=== PATIENT | female | born 1990 | race Two or more races ===

== ENCOUNTER 2018-11-18 10:08 | Inpatient (IN) | payer OTHER ==
--- NOTE | 2018-11-18 10:46 | HP ---
Past Medical History - Admission Chief Complaint: painful contractions History of Present Illness: 28 y/o P2 female with h/o prior section for twins here at 36.6 weeks in active labor. Pt declines TOLAC. complicated by IUGR and she has been followed by MFM. No other issues/complaints. +FM. 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 Weeks Gestation by Dates: 36.6 Additional OB History: IUGR, h/o twin c section Heme/Onc: No: Anemia Psych: No: Anxiety, Bipolar, Depression - Past Surgical History Past Surgical History: Yes: Hx Myomectomy: No Hx Transabdominal Cerclage: No - Smoking History Smoking history: Never smoked Have you smoked in the past 12 months: No Aproximately how many cigarettes per day: 0 - Alcohol/Substance Use Hx Alcohol Use: No - Social History Usual Living Arrangement: Yes: With Spouse ADL: Independent History of Recent Travel: No Home Medications - Allergies Allergies/Adverse Reactions: Allergies Allergy/AdvReac Type Severity Reaction Status Date / Time prednisone Allergy Severe Rash Verified 11/14/18 10:30 - Home Medications Home Medications: Ambulatory Orders Prenat 115/Iron Fum/Folic/Dss [ 19 Tablet] 1 tab PO DAILY 11/11/18 Sertraline HCl [Zoloft] 100 mg PO DAILY 11/11/18 Physical Exam - Maternity Constitutional: Yes: Well Nourished, Mild Distress (having painful contractions) HENT: Yes: Atraumatic, Normocephalic Neck: Yes: Trachea Midline Cardiovascular: Yes: Regular Rate and Rhythm Lungs: Clear to auscultation - Abdominal Exam/OB Number of Fetuses: Single Presentation: Vertex Contractions: Yes Regularity: Regular Intensity: Moderate Heart Rate (range): 145 Accelerations: None Decelerations: Early - Vaginal Exam/OB Vaginal Bleediing: No Dilatation (cm): 1 Effacement (%): 90 Amniotic Membrane Status: Intact Presentation: Vertex/Position Station: -2 - Physical Exam Psychiatric: Yes: Alert, Oriented Hemorrhage Risk Assessment - Risk Factors Medium Risk Factors: Yes: Prior , uterine surgery,or multiple laparotomies High Risk Factors: Yes: None Risk Score: 1 Risk Level: Medium Risk Problem List - Problems (1) labor Code(s): O60.00 - LABOR WITHOUT DELIVERY, UNSPECIFIED TRIMESTER (2) History of delivery Code(s): Z98.891 - HISTORY OF UTERINE SCAR FROM PREVIOUS SURGERY Assessment/Plan 28 y/o with h/o prior c section in labor at 36.6 weeks, declines tolac admit to L&D desires repeat c section, consent signed anesthesia/nursery/neonatology and OR/L&D staff aware NPO Joni
[2018-11-18] MEDS ORDERED: CITRIC ACID/SODIUM CITRATE 30 ML UNIT-DOSE CUP PO ONE (11:00)
[2018-11-18 11:15] LABS: BASO % 0.1 % (0-2.0); HEMATOCRIT 32.7 % (32.4-45.2); HEMOGLOBIN 11.5 GM/dL (10.7-15.3); LYMPH % 5.9 % (8-40); MCH 30.8 pg (25.7-33.7); MCHC 35.3 g/dl (32.0-36.0); MEAN CELL VOLUME 87.3 fl (80-96); MEAN PLT VOLUME 8.1 fl (7.5-11.1); MONO % 3.5 % (3.8-10.2); NEUT % 90.5 % (42.8-82.8); PLATELET COUNT 153 K/MM3 (134-434); RBC 3.74 M/mm3 (3.60-5.2); RDW 12.9 % (11.6-15.6); WHITE BLOOD COUNT 9.9 K/mm3 (4.0-10.0)
[2018-11-18 11:19] VITALS: BMI 21.7
[2018-11-18] MEDS: ELECTROLYTE-148 SOLN 1,000 ML IV SCH (11:21)
[2018-11-18 11:34] LABS: INR 0.97 (0.83-1.09); PROTHROMBIN TIME (PATIENT) 11.4 SEC (9.7-13.0)
[2018-11-18 11:37] LABS: ACTIVATED PTT 27.4 SECONDS (25.2-36.5)
[2018-11-18] MEDS ORDERED: morphine SULFATE/PF 0.5 MG/ML (2cc Syringe - QUVA) ONE (11:46)
[2018-11-18 11:48] LABS: BLOOD UREA NITROGEN 7.5 mg/dL (7-18); CALCIUM 8.3 mg/dL (8.5-10.1); CREATININE 0.4 mg/dL (0.55-1.3); POTASSIUM 3.6 mmol/L (3.5-5.1)
[2018-11-18] MEDS ORDERED: ePHEDrine SULFATE 50 MG/1 ML AMPULE ONE (11:48)
[2018-11-18] MEDS ORDERED: OXYTOCIN 20 UNITS in 0.9% NS 40 UNIT/2,000 ML INFUS.BAG IV ONE (11:51)
[2018-11-18] MEDS ORDERED: GENTAMICIN SO4 80 MG/2 ML VIAL ONE (12:13)
[2018-11-18 12:56] LABS: EPI CELLS 30.1 /HPF (0-5/HPF); HYALINE CASTS 30 /lpf (0-8); URINE APPEARANCE CLOUDY; URINE BACTERIA 60.5 /hpf (NEGATIVE); URINE BILIRUBIN NEGATIVE (NEGATIVE); URINE COLOR DK YELLOW; URINE GLUCOSE (UA) NEGATIVE (NEGATIVE); URINE KETONE TRACE (NEGATIVE); URINE LEUK ESTERASE NEGATIVE (NEGATIVE); URINE NITRITE NEGATIVE (NEGATIVE); URINE PROTEIN 3+ (NEGATIVE); URINE RBC 2 /hpf (0-4); URINE UROBILINOGEN 0.2 mg/dL (0.2-1.0); URINE WBC 4 /hpf (0-5)
[2018-11-18] MEDS ORDERED: METHYLERGONOVINE MALEATE 0.2 MG/1 ML AMP IM PRN (13:00)
[2018-11-18] MEDS ORDERED: SENNOSIDES/DOCUSATE COMBO (SENNA PLUS) TABLET (UD) PO PRN (13:00)
[2018-11-18] MEDS ORDERED: oxyCODONE HCL 5 MG TABLET PO PRN (13:00)
[2018-11-18] MEDS ORDERED: IBUPROFEN 800 MG/8 ML IJ IVPB PRN (13:00)
--- NOTE | 2018-11-18 13:07 | OP ---
Operative Note - Note: Operative Date: 11/18/18 Pre-Operative Diagnosis: previous section, active labor, declined TOLAC, SIUP at 36.6 weeks, IUGR Operation: repeat low transverse delivery Findings: uterine window normal b/l tubes and ovaries Post-Operative Diagnosis: Same as Pre-op Surgeon: Alyce Tripp Print Production Associate: Ryan Ta Anesthesiologist/DEMAND PLANNING MANAGER: Agueda Gongora MD Anesthesia: Spinal Specimens Removed: placenta Estimated Blood Loss (mls): 700 Operative Report Dictated: Yes
[2018-11-18] MEDS ORDERED: ONDANSETRON 4 MG/2 ML VIAL IVPUSH PRN (13:17)
[2018-11-18] MEDS ORDERED: morphine SULFATE/PF 0.5 MG/ML (2cc Syringe - QUVA) EP ONE (13:17)
[2018-11-18] MEDS ORDERED: OXYTOCIN 20 UNITS in 0.9% NS 20 UNIT/1,000 ML INFUS.BAG IV ONE (13:55)
--- NOTE | 2018-11-18 14:24 | OP ---
DATE OF OPERATION: 11/18/2018 PREOPERATIVE DIAGNOSES: 1. Single intrauterine at 36.6 weeks. 2. Active labor. 3. Prior section. 4. Declined trial of labor after . POSTOPERATIVE DIAGNOSES: 1. Single intrauterine at 36.6 weeks. 2. Active labor. 3. Prior section. 4. Declined trial of labor after . PROCEDURE: Repeat low transverse section. SURGEON: Alyce Tripp DO LUNCHROOM ATTENDANT: MCKENZIE Thorpe ANESTHESIA: Spinal ANESTHESIOLOGIST: BENI Byrd FINDINGS: Lower uterine segment window appreciated upon entry into the abdomen. Normal bilateral tubes and ovaries. COUNT: Sponge, needle and instrument count correct. ESTIMATED BLOOD LOSS: 700 mL COMPLICATIONS: None. Apgars 9 and 9. DISPOSITION: Stable to PACU. BRIEF HISTORY AND PROCEDURE: Patient is a 28-year-old female who had a prior section for twin delivery who arrived to Labor & Delivery with the complaints of painful contractions. She was examined and found to be dilated and clive every 2 to 3 minutes in significant pain. The patient has a history of a prior section and declined trial of labor after at this time. Consents for this repeat were signed at this time. Informed consent was obtained. Questions were answered. She was then taken back to the operating room and given spinal anesthesia by Dr. Gongora without incident. She was placed in the dorsal supine position. Quinones catheter was placed under sterile conditions. She was prepped and draped in the usual sterile fashion. A timeout was performed. A Pfannenstiel skin incision was created in the skin with the scalpel using the same incision from her prior delivery. The subcutaneous tissue was incised down to the level of the rectus fascia sharply. The fascia was incised on either side of the midline sharply and the fascial incision was extended in the superior lateral direction sharply. The fascia was tented upwards and dissected off the underlying layer of the rectus muscle sharply. The musculature was identified, from the midline laterally. A bladder blade was inserted. A low transverse incision was created in the uterus using the scalpel and carried in the superior lateral direction bluntly. This was done well above the level of the uterine window, which was appreciated upon entry into the abdominal cavity. The infant was then delivered from the LOP position. Bilateral shoulders and the remainder of the delivered with ease. After a minute of delayed cord clamping, the cord was clamped twice and cut in between. The infant was taken over to the warmer to be assessed by the nursery staff where Apgars of 9 and 9 were assigned. The placenta delivered intact with 3-vessel cord. The uterus was exteriorized from the abdomen, inspected and cleaned off all amniotic membrane and debris with the sponge. The hysterotomy was reapproximated in a double layer closure using 1-0 Vicryl in a running locked fashion. The 2nd layer using 0 Biosyn in a running fashion in an imbricating layer. Any areas of bleeding were sutured with figure-of-8 sutures using Biosyn suture until hemostasis was achieved. A small area on the left angle of the incision was noted to be bleeding. The uterine artery was visible. No stitch was placed at this time due to concern for approximation of the uterine artery. A piece of Surgicel was placed at this point and excellent hemostasis was achieved. The posterior cul-de-sac was suctioned of any blood clot and fluid. The uterus was placed back into the abdomen. Again the hysterotomy was noted to be hemostatic. The peritoneum was reapproximated using 2-0 chromic in a running fashion. The musculature was reapproximated using a single interrupted suture using 2-0 chromic. The fascia was reapproximated using 1 Vicryl in a running fashion. The subcutaneous tissue was reapproximated with 3 interrupted sutures using 3-0 Vicryl and the skin was reapproximated using subcuticular sutures using 3-0 Vicryl and Steri-Strips were applied. The patient tolerated the procedure well, was accompanied in stable condition to PACU after the procedure. ALYCE TRIPP DO /[id number]
[2018-11-18] MEDS: OXYTOCIN 20 UNITS in 0.9% NS 20 UNIT/1,000 ML INFUS.BAG IV SCH (15:00)
[2018-11-18] MEDS: FERROUS SO4 325 MG TABLET (FP) PO SCH (22:27)
[2018-11-19 07:39] LABS: BASO % 0.1 % (0-2.0); EOS % 0.1 % (0-4.5); HEMOGLOBIN 9.6 GM/dL (10.7-15.3); LYMPH % 5.2 % (8-40); MCH 31.3 pg (25.7-33.7); MCHC 35.5 g/dl (32.0-36.0); MEAN CELL VOLUME 88.1 fl (80-96); MEAN PLT VOLUME 7.8 fl (7.5-11.1); MONO % 4.8 % (3.8-10.2); NEUT % 89.8 % (42.8-82.8); PLATELET COUNT 140 K/MM3 (134-434); RBC 3.06 M/mm3 (3.60-5.2); RDW 13.3 % (11.6-15.6)
[2018-11-19] MEDS ORDERED: DIPHTH,PERTUSS(ACELL),TET 0.5 ML DISP.SYRIN IM ONE ×2 (10:00→11:00)
[2018-11-19] MEDS: FERROUS SO4 325 MG TABLET (FP) PO SCH ×2 (10:05→22:04)
[2018-11-19] MEDS: OXYTOCIN 20 UNITS in 0.9% NS 20 UNIT/1,000 ML INFUS.BAG IV SCH (10:35)
--- NOTE | 2018-11-19 11:37 | PN ---
Progress Note (short form) - Note Progress Note: Anesthesia postop note 28 y/o F s/p spinal anesthesia/duramorph for repeat section POD#1, vss, aaox3, pain well controlled, ambulated earlier today. No anesthesia complications.
[2018-11-19] MEDS: SIMETHICONE 80 MG TAB.CHEW (FP) PO PRN ×2 (11:45→15:35)
[2018-11-19] MEDS: oxyCODONE HCL 5 MG TABLET PO PRN ×2 (11:45→15:34)
[2018-11-19] MEDS: ELECTROLYTE-148 SOLN 1,000 ML IV SCH (11:53)
[2018-11-19] MEDS ORDERED: BISACODYL 10 MG SUPP.RECT RC PRN (13:02)
[2018-11-19] MEDS: IBUPROFEN 600 MG TABLET (FP) PO PRN (15:33)
[2018-11-19] MEDS ORDERED: ACETAMINOPHEN 500 MG TABLET (FP) PO ONE (16:52)
--- NOTE | 2018-11-19 19:41 | PN ---
Post Progress Note - Subjective Subjective: Late entry for 0855 Pt seen/evaluated. Doing well. Pain controlled. OOB ambulating, voiding. No flatus yet. Tolerating clears. VB scant. No complaints. Type of Delivery: Repeat C/S Vital Signs: Vital Signs Temperature 98.9 F 11/19/18 18:00 Pulse Rate 108 H 11/19/18 18:00 Respiratory Rate 17 11/19/18 18:00 Blood Pressure 121/70 11/19/18 18:00 O2 Sat by Pulse Oximetry (%) Uterus: Yes: Fundus Firm Incision: Yes: Dressing dry and intact Abdomen/GI: Yes: Abdomen soft Lochia: Yes: Rubra Lochia, amount: Small Extremities: Yes: Calves non-tender Perineum: Yes: Intact Activity: Ambulating - Labs Labs: CBC WBC 12.0 K/mm3 (4.0-10.0) H 11/19/18 07:10 RBC 3.06 M/mm3 (3.60-5.2) L 11/19/18 07:10 Hgb 9.6 GM/dL (10.7-15.3) L 11/19/18 07:10 Hct 27.0 % (32.4-45.2) L D 11/19/18 07:10 MCV 88.1 fl (80-96) 11/19/18 07:10 MCH 31.3 pg (25.7-33.7) 11/19/18 07:10 MCHC 35.5 g/dl (32.0-36.0) 11/19/18 07:10 RDW 13.3 % (11.6-15.6) 11/19/18 07:10 Plt Count 140 K/MM3 (134-434) 11/19/18 07:10 MPV 7.8 fl (7.5-11.1) 11/19/18 07:10 Absolute Neuts (auto) 10.8 K/mm3 (1.5-8.0) H 11/19/18 07:10 Neutrophils % 89.8 % (42.8-82.8) H 11/19/18 07:10 Lymphocytes % 5.2 % (8-40) L 11/19/18 07:10 Monocytes % 4.8 % (3.8-10.2) 11/19/18 07:10 Eosinophils % 0.1 % (0-4.5) D 11/19/18 07:10 Basophils % 0.1 % (0-2.0) 11/19/18 07:10 Nucleated RBC % 0 % (0-0) 11/19/18 07:10 Problem List - Problems (1) labor Code(s): O60.00 - LABOR WITHOUT DELIVERY, UNSPECIFIED TRIMESTER (2) History of delivery Code(s): Z98.891 - HISTORY OF UTERINE SCAR FROM PREVIOUS SURGERY Assessment/Plan 28 y/o POD#1 s/p repeat LTCS at 36.6 weeks for PTL AFVSS Regular diet ok PO pain meds encourage ambulation routine care
[2018-11-19 20:05] LABS: BASO % 0.1 % (0-2.0); HEMATOCRIT 25.5 % (32.4-45.2); HEMOGLOBIN 8.9 GM/dL (10.7-15.3); MCHC 35.1 g/dl (32.0-36.0); MEAN CELL VOLUME 88.4 fl (80-96); MEAN PLT VOLUME 8.1 fl (7.5-11.1); NEUT % 89.9 % (42.8-82.8); PLATELET COUNT 155 K/MM3 (134-434); RBC 2.88 M/mm3 (3.60-5.2); RDW 13.4 % (11.6-15.6); WHITE BLOOD COUNT 12.7 K/mm3 (4.0-10.0)
[2018-11-20] MEDS: ACETAMINOPHEN 325 MG TABLET (FP) PO PRN ×2 (01:01→14:49)
[2018-11-20] MEDS: IBUPROFEN 600 MG TABLET (FP) PO PRN ×2 (01:01→14:48)
[2018-11-20] MEDS: SIMETHICONE 80 MG TAB.CHEW (FP) PO PRN ×2 (01:02→14:49)
--- NOTE | 2018-11-20 06:46 | PN ---
Post Progress Note - Subjective Subjective: Pt seen/evaluated and doing well. Pain controlled. Tmax 100.7 yesterday evening , s/p tylenol PO at that time, afebrile since. WBC stable. [place] "cold" overnight but no fever. Tolerating diet, ambulating, voiding, passing flatus. Type of Delivery: Repeat C/S Vital Signs: Vital Signs Temperature 97.8 F 11/20/18 05:00 Pulse Rate 71 11/20/18 05:00 Respiratory Rate 20 11/20/18 05:00 Blood Pressure 108/60 11/20/18 05:00 O2 Sat by Pulse Oximetry (%) Uterus: Yes: Fundus Firm Incision: Yes: Sutures intact Abdomen/GI: Yes: Abdomen soft, Tender (appropriate post surgical tenderness), Passing flatus, Tolerating PO. No: Abdominal Distention Lochia: Yes: Rubra Lochia, amount: Small Extremities: Yes: Calves non-tender. No: Edema Perineum: Yes: Intact Activity: Ambulating - Labs Labs: CBC WBC 12.7 K/mm3 (4.0-10.0) H 11/19/18 19:15 RBC 2.88 M/mm3 (3.60-5.2) L 11/19/18 19:15 Hgb 8.9 GM/dL (10.7-15.3) L 11/19/18 19:15 Hct 25.5 % (32.4-45.2) L 11/19/18 19:15 MCV 88.4 fl (80-96) 11/19/18 19:15 MCH 31.0 pg (25.7-33.7) 11/19/18 19:15 MCHC 35.1 g/dl (32.0-36.0) 11/19/18 19:15 RDW 13.4 % (11.6-15.6) 11/19/18 19:15 Plt Count 155 K/MM3 (134-434) 11/19/18 19:15 MPV 8.1 fl (7.5-11.1) 11/19/18 19:15 Absolute Neuts (auto) 11.4 K/mm3 (1.5-8.0) H 11/19/18 19:15 Neutrophils % 89.9 % (42.8-82.8) H 11/19/18 19:15 Lymphocytes % 5.0 % (8-40) L 11/19/18 19:15 Monocytes % 5.0 % (3.8-10.2) 11/19/18 19:15 Eosinophils % 0.0 % (0-4.5) D 11/19/18 19:15 Basophils % 0.1 % (0-2.0) 11/19/18 19:15 Nucleated RBC % 0 % (0-0) 11/19/18 19:15 Problem List - Problems (1) Status post delivery Code(s): Z98.89 - OTHER SPECIFIED POSTPROCEDURAL STATES * DO NOT USE * (2) Anemia Code(s): D64.9 - ANEMIA, UNSPECIFIED Assessment/Plan 28 y/o POD#2 s/p repeat LTCS AFebrile Tmax yesterday at 1700 100.7. Afebrile since. regular diet PO pain meds if remains afebrile by this afternoon, pt may desire to go home
--- NOTE | 2018-11-20 06:48 | DS ---
Physical Exam-BLADE ALIGNER Vital Signs: Vital Signs Temperature 97.8 F 11/20/18 05:00 Pulse Rate 71 11/20/18 05:00 Respiratory Rate 20 11/20/18 05:00 Blood Pressure 108/60 11/20/18 05:00 O2 Sat by Pulse Oximetry (%) Constitutional: Yes: Well Nourished, No Distress Eyes: Yes: Conjunctiva Clear Neck: Yes: Supple Cardiovascular: Yes: Regular Rate and Rhythm Respiratory: Yes: CTA Bilaterally Gastrointestinal: Yes: Normal Bowel Sounds ....Post : Yes: Uterus firm, Uterus non-tender Wound/Incision: Yes: Clean/Dry, Well Approximated, Sutures Intact Neurological: Yes: Alert, Oriented Psychiatric: Yes: Alert, Oriented Labs: CBC, BMP 11/19/18 19:15 11/18/18 10:53 Delivery - Delivery Section: Repeat, Low Flap Transverse Type of Anesthesia: Spinal Episiotomy/Laceration: None EBL (cc): 700 Delivery, Single - Stages of Labor Date 1st Stage Initiatied: 11/18/18 Time 1st Stage Initiated: 07:00 Date of Delivery: 11/18/18 Time of Delivery: 12:20 Date Placenta Delivered: 11/18/18 Time Placenta Delivered: 12:22 Placenta: Yes: Manual Removal - Condition of Infant Zigzag Topstitcher/Credit Risk Management Director Present: No Infant Gender: Female Weight: 4 lb 8 oz Position: Left, OT Total Hours ROM (Hrs/Mins): 1 min - 1 Minute Total Score: 9 5 Minutes Total Score: 9 - Feeding Plan Initial Plan: Elected not to breastfeed exclusively throughout hospitalization Discharge Summary Reason For Visit: LABOR ADMISSION Current Active Problems Anemia (Acute) History of delivery (Acute) labor (Acute) Hospital Course: Pt admitted on 11/18 with complaints of painful contractions. Was found to be in labor. Has h/o c section for twins, declined TOLAC. Pt underwent repeat LTCS. Pt had fever of 100.7 on evening of post op day 1, otherwise had unremarkable post /post op recovery and was discharged home on post op day 2. Condition: Good - Instructions Diet, Activity, Other Instructions: Physical activity Resume your normal everyday activity as tolerated but no heavy lifting or strenuous exercise until seen by your surgeon. You may walk unlimited amounts and climb stairs. You may resume driving the car when you feel safe and comfortable behind the wheel. No sexual activity as instructed. If you have bandages/tapes on the skin, leave them in place. They will fall off over the next week or two. You may shower daily and pat the incision dry, no scrubbing the incision. Diet There are no dietary restrictions. Eat healthy, high-fiber foods. Drink 6 to 8 glasses of liquid each day. This will assist in keeping your bowels regular. Pain management You may take Tylenol or Ibuprofen (for example, Motrin, Advil etc.) for mild pain. If you have any pain medication sent to your pharmacy for severe pain, please take as directed. Call MD for any of the following: Severe pain not relieved by medication Fever of 101 or higher Excessive bleeding or drainage on dressing Inability to urinate Call Dr. Tripp and make appt. to be seen in one week. Referrals: Alyce Tripp DO [Staff Physician] - Disposition: HOME - Home Medications Comprehensive Discharge Medication List: Ambulatory Orders Prenat 115/Iron Fum/Folic/Dss [ 19 Tablet] 1 tab PO DAILY 11/11/18 Sertraline HCl [Zoloft] 100 mg PO DAILY 11/11/18 Ferrous Sulfate [Feosol] 325 mg PO BID #60 tablet 11/20/18 Ibuprofen [Motrin -] 600 mg PO QID PRN #28 tablet 11/20/18
[2018-11-20 07:05] LABS: BASO % 0.1 % (0-2.0); EOS % 0.3 % (0-4.5); HEMATOCRIT 24.1 % (32.4-45.2); HEMOGLOBIN 8.5 GM/dL (10.7-15.3); LYMPH % 8.8 % (8-40); MCH 31.2 pg (25.7-33.7); MCHC 35.2 g/dl (32.0-36.0); MEAN CELL VOLUME 88.8 fl (80-96); MEAN PLT VOLUME 7.3 fl (7.5-11.1); MONO % 7.1 % (3.8-10.2); NEUT % 83.7 % (42.8-82.8); PLATELET COUNT 145 K/MM3 (134-434); RBC 2.72 M/mm3 (3.60-5.2); RDW 13.6 % (11.6-15.6); WHITE BLOOD COUNT 7.9 K/mm3 (4.0-10.0)
[2018-11-20 08:33] VITALS: BP 116/74; PULSE 77
[2018-11-20] MEDS: FERROUS SO4 325 MG TABLET (FP) PO SCH (09:33)
[2018-11-20 15:25] VITALS: TEMP 98.7
--- NOTE | 2018-11-26 20:14 | PATH ---
Surgical Pathology Report Patient Name: ISRA GRIFFIN [facility]. Rec. #: [id number] /Age/Gender: 1990 (Age: 28) / F Account: [id number] Location: [facility] OBS/GENERAL FOUNDRY WORKER Taken: 11/18/2018 Received: 11/19/2018 Reported: 11/26/2018 Physicians: Alyce Tripp M.D. Specimen(s) Received PLACENTA Clinical History , twin 2013, repeat Final Diagnosis PLACENTA: THIRD TRIMESTER PLACENTA WITH FOCAL INFARCTION (1.7 CM DIMENSION), AND PIGMENTED MACROPHAGES IN THE MEMBRANES, CONSISTENT WITH MECONIUM STAINING. TRIVASCULAR CORD. Electronically Signed Poppy Perez M.D. Gross Description The specimen is received fresh labeled placenta and is a 395 gram, 17.0 x 14.0 x 3.0 cm. placenta with attached membranes and umbilical cord. The attached membranes are angelo green, meconium stained, translucent with focal opacities and insert marginally. The umbilical cord measures 27 cm. in length and averages 1.1 cm. in diameter. The cord inserts eccentrically, 4 cm. to the nearest margin. No true knots or strictures are identified. Cut surface of the umbilical cord reveals 3 vessels. The surface is lepe blue with moderate fibrin deposition and appropriate caliber vessels. The maternal surface is red-brown and intact. Sectioning reveals a 1.7 cm in greatest dimension angelo intraparenchymal lesion. The remaining placental parenchyma is red-brown and spongy. Academic Associate sections are submitted in three cassettes as follows: 1-membrane roll and umbilical cord; 2-lesion; 1-[id number]-[id number] section of placenta. 11/25/2018 [facility]
== END 2018-11-20 15:45 | disposition home or self-care (01) | DRG 540 ==
LOC: JDEL 10:08 → JLDR 10:25 → J3W 14:42
PROVIDERS: ADMIT Obstetrics & Gynecology; ATTEND Obstetrics & Gynecology
PROC: 10D00Z1 Extraction of Products of Conception, Low, Open Approach (ICD-10-PCS; principal; 2018-11-18)
DX: O34.219 Maternal care for unspecified type scar from previous cesarean delivery (principal); O36.5990 Maternal care for other known or suspected poor fetal growth, unspecified trimester, not applicable or unspecified; Z37.0 Single live birth; Z3A.36 36 weeks gestation of pregnancy
CPT/HCPCS: 36415; 80048; 81003; 85025; 85610; 85730; 86593; 86850; 86900; 86901; 88307-TC; 90715